=== PATIENT | female | born 1990 | race Caucasian/White ===

== ENCOUNTER 2018-06-16 16:51 | Observation (INO) ==
--- NOTE | 2018-06-16 17:06 | ERNOTE ---
Abdominal HPI - Narrative Date of Service: 06/16/18 - General Chief Complaint: Abdominal Pain Time Seen by Provider: 06/16/18 17:05 Source: patient Exam Limitations: no limitations - Immun/Allergies/Home Medications Immunizatons: IMMUNIZATION HX Immunizations Up to Date Yes History of Influenza Vaccine No Hx Pneumococcal Vaccination No Allergies/Adverse Reactions: Allergies valacyclovir HCl [From Valtrex] Allergy (Mild, Verified 06/16/18 17:03) Itching hydrocodone Allergy (Verified 06/16/18 17:03) Migrains zolpidem tartrate [From Ambien] Allergy (Verified 06/16/18 17:03) Hallucinations Home Medications: HOME MEDICATIONS Dexlansoprazole [Dexilant] 60 mg PO DAILY 01/17/16 [Last Taken 04/10/16] Buspirone HCl 30 mg PO BID 04/11/16 [Last Taken 04/10/16] Acyclovir [Zovirax] 400 mg PO PRN PRN 05/22/16 [Last Taken Unknown] Melatonin 1 mg SL DAILY 07/18/16 [Last Taken Unknown] Duloxetine HCl [Cymbalta] 90 mg PO DAILY 12/16/17 [Last Taken Unknown] hydrOXYzine HCL [Atarax] 25 mg PO DAILY PRN 12/16/17 [Last Taken Unknown] Cyclobenzaprine HCl 10 mg PO PRN PRN 01/26/18 [Last Taken Unknown] Promethazine HCl [Phenergan (Promethazine)] 25 mg PO Q6H PRN #30 tab 03/23/18 [ Last Taken Unknown] - Pain Score Pain Score #1 Pain Score: 9 Abdominal Pain Onset Location: epigastric Pain Radiation: back - History of Present Illness Narrative: The patient is a 27 year old female who presents for epigastric abdominal pain which has been present for 2 days. There are associated symptoms of nausea, vomiting and diarrhea. Patient denies having vomiting today but has felt unable to drink and has only had bites of food due to nausea. Patient has had 4 episodes of diarrhea today. The patient reports pain to epigastric and periumbilical, 9/10. There are no alleviating factors. There are no aggravating factors. Previous treatments have included: Phenergan without relief. The past medical history includes: Crohns and anxiety. The social history is positive for current smoking. The patient has had no ill contacts. Patient states her last Crohns flare was approximately 3 years ago. Timing: getting worse Modifying Factors - (Worsens): Present: sitting up. Absent: eating Associated Symptoms: Present: back pain, nausea, vomiting. Absent: diarrhea- gross blood Review of Systems - Review of Systems Constitutional: Present: fatigue. Absent: chills EYE: Present: no symptoms reported ENT: Present: no symptoms reported, nasal drainage. Absent: ear pain, sore throat Respiratory: Present: no symptoms reported. Absent: shortness of breath, cough Cardiology: Present: no symptoms reported. Absent: chest pain Gastrointestinal/Abdominal: Present: nausea, vomiting, diarrhea, abdominal pain Genitourinary: Present: no symptoms reported. Absent: dysuria, discharge Musculoskeletal: Present: no symptoms reported Skin: Present: no symptoms reported. Absent: rash Neurological: Present: no symptoms reported Endocrine: Present: no symptoms reported Hematologic/Lymphatic: Present: no symptoms reported Psych: Present: no symptoms reported All Other Systems: All systems neg except as marked Medical History (Last Reviewed 06/16/18 @ 19:58 by JESUS Bravo) Anxiety Crohns disease Surgical History: Surgical History (Last Reviewed 06/16/18 @ 19:58 by JESUS Bravo) Hx of thyroidectomy (Resolved) right ankle surgery (Acute) Status post cholecystectomy (Acute) History of lung surgery Family History: Family History (Last Reviewed 06/16/18 @ 19:58 by JESUS Bravo) Other Family history reviewed with no changes Social History: Preferred Language Cymro Smoking Status Current every day smoker Abuse History No History of abuse Psych History Hx of Anxiety,Hx of Depression Alcohol Use none Drug Use none Physical Exam - Physical Exam General Appearance: Present: wd/wn, alert, moderate distress Head Exam: Present: normal inspection Eye Exam: Normal inspection: bilateral Ears, Nose, Throat: Present: normal ENT inspection, dry mucous membranes Neck: Present: normal inspection, nontender Respiratory: Present: no respiratory distress, normal breath sounds, lungs clear Cardiovascular/Chest: Present: regular rate, rhythm, no murmur Gastrointestinal/Abdominal: Present: nondistended, soft, tenderness - epigastric and periumbilical, abnormal bowel sounds - hyperactive, guarding Back Exam: Present: no CVA tenderness Neurological Exam: Present: alert, oriented, normal mood/affect Skin Exam: Present: normal color, warm/dry ED Progress - Results and Orders Patient's Lab Results:: I have reviewed the patient's lab results. - Vital Signs Patient's Vital Signs:: I have reviewed the patient's vital signs. Vital Signs: Vital Signs 06/16/18 16:53 Temperature 36.8 C Pulse Rate 93 Respiratory Rate 12 Blood Pressure 128/74 O2 Sat by Pulse Oximetry 98 - X-Ray X-Ray #1 X-Ray: abdomen Interpretation: Reviewed by me X-ray Comments: Abdomen xray: Nonspecific air-fluid levels - Progress/Reassessment Chief Complaint: Abdominal Pain Plan - Plan Plan: Patient nausea persists along with recurrence of pain to abdomen. Discussed care with Dr. Joiner and will admit observation due to persistent pain, nausea, as well as nonspecific air-fluid levels on abdominal x-ray with history of Crohn 's. Departure Clinical Impression: Dehydration Crohns disease Qualifiers: Gastrointestinal tract location: unspecified location Digestive disease complication type: unspecified complication Qualified Code(s): K50.919 - Crohn' s disease, unspecified, with unspecified complications Abdominal pain Qualifiers: Abdominal location: epigastric Qualified Code(s): R10.13 - Epigastric pain - Departure Disposition: Still a patient Condition: Stable
[2018-06-16] MEDS ORDERED: ONDANSETRON HCL/PF 2 MG/ML VIAL IV ONE (17:13)
[2018-06-16] MEDS ORDERED: KETOROLAC TROMETHAMINE 30 MG/ML VIAL IV ONE (17:14)
[2018-06-16] MEDS ORDERED: NORMAL SALINE 1,000 ML IV ONE ×2 (17:14→20:14)
[2018-06-16 17:31] LABS: Hematocrit 43.7 % (37.0-47.0); Hemoglobin 14.6 gm/dL (12.5-16.0); Mean Cell Volume 87.4 fl (78-100); Mean Corpuscular Hemoglobin 29.2 pg (27-31); Mean Corpuscular Hgb Conc 33.4 g/dl (32-36); Neutrophil # 6.2 K/mm3 (1.3-6.0); Neutrophil % 71.8 % (42-75.0); Platelet Count 282 K/mm3 (150-450); Red Cell Distribution Width 13.2 % (11.5-14.0); White Blood Count 8.7 K/mm3 (4.0-10.5)
[2018-06-16] MEDS ORDERED: KETOROLAC TROMETHAMINE 30 MG/ML VIAL ONE (17:43)
[2018-06-16] MEDS ORDERED: ONDANSETRON HCL/PF 2 MG/ML VIAL ONE (17:43)
[2018-06-16 17:45] LABS: Albumin * 4.2 gm/dl (3.4-5.0); Anion Gap 11.8 mmol/L (6.8-13.8); BUN/Creatinine Ratio 17.2 (9.0-21.6); Bilirubin, Total 0.5 mg/dL (0.0-1.1); Ca. Corrected For Albumin 9.3 mg/dL (8.4-10.2); Calcium * 9.8 mg/dL (7.9-10.9); Carbon Dioxide 28.7 mmol/L (24-32.6); Potassium 3.5 mmol/L (3.4-4.6); Total Protein 7.6 gm/dL (6.2-8.2)
[2018-06-16 19:22] LABS: Urine Bilirubin Negative (NEGATIVE); Urine Blood Negative /ul (NEGATIVE); Urine Ketone 15 mg/dL (NEGATIVE); Urine Nitrite Negative (NEGATIVE); Urine Protein Negative (NEGATIVE); Urine Specific Gravity 1.025 SP.GR. (1.005-1.010); Urine Urobilinogen Normal (NORMAL)
[2018-06-16 19:41] LABS: Urine Appearance Clear (CLEAR); Urine Color Yellow
[2018-06-16 19:42] LABS: Urine Bacteria TRACE; Urine RBC TRACE /hpf (0-5); Urine WBC 0-5 /hpf (0-5)
[2018-06-16] MEDS ORDERED: MORPHINE SULFATE 2 MG/ML DISP.SYRIN IV PRN (20:14)
[2018-06-16] MEDS ORDERED: ONDANSETRON HCL/PF 2 MG/ML VIAL IV PRN (20:14)
[2018-06-16] MEDS ORDERED: hydrOXYzine HCL 25 MG TABLET PO PRN (21:38)
[2018-06-16] MEDS ORDERED: PROMETHAZINE HCL 25 MG TABLET PO PRN (21:38)
[2018-06-16] MEDS ORDERED: CYCLOBENZAPRINE HCL 10 MG TABLET PO PRN (21:38)
[2018-06-16] MEDS ORDERED: busPIRone HCL 5 MG TABLET PO SCH (22:30)
[2018-06-16] MEDS ORDERED: PRAZOSIN HCL 1 MG CAPSULE PO SCH (22:30)
[2018-06-16] MEDS ORDERED: PANTOPRAZOLE SODIUM 40 MG TABLET.EC ONE (22:44)
[2018-06-16] MEDS: PANTOPRAZOLE SODIUM 40 MG TABLET.EC PO SCH (22:51)
[2018-06-17] MEDS: PANTOPRAZOLE SODIUM 40 MG TABLET.EC PO SCH (07:14)
[2018-06-17] MEDS ORDERED: DULoxetine HCL 30 MG CAPSULE.SA PO SCH (09:00)
[2018-06-17] MEDS ORDERED: CYCLOBENZAPRINE HCL 10 MG TABLET PO PRN (09:02)
--- NOTE | 2018-06-17 11:43 | DS ---
(1) Gastroenteritis Problem: Acute (2) Dehydration, moderate Problem: Acute Description of Stay: 27 y/o female with PMHx of Chronn's disease, depression, and anxiety disorder was admitted to observation for epigastric pain, nausea, vomiting and diarrhea of several days duration. Jacquelyn denied fever or chills but says that her symptoms gradually got worse and was not responding to home meds. She reports having multiples episodes of nonbloody diarrhea, the last occuring yesterday morning. ER Abd Xray revealed a nonobstructed air patternand no apparent obstruction or perforation. Labs were unremarkable. After careful evaluation, jacquelyn was treated with antiemetics, IV hydration, analgesics, and anxiolitics for her anxiety disorder she now says she feels better has less nausea and less abdominal pain. Therefore, jacquelyn is being discharged with a PPI, antiemetics, and instruction to F/ u with her PCP. Procedures Performed: none Results and Findings: Lab Pending Results 06/16/18 17:30: WBC 8.7, RBC 5.00, Hgb 14.6, Hct 43.7, MCV 87.4, MCH 29.2, MCHC 33.4, RDW 13.2, Plt Count 282, MPV 10.0, Immature Gran % (Auto) 0.20, Immature Gran # (Auto) 0.02, Neutrophils % 71.8, Lymphocytes % 20.3, Monocytes % 5.5, Eosinophils % 1.7, Basophils % 0.5, Nucleated RBC % 0.0, Neutrophils # 6.2 H, Lymphocytes # 1.77, Monocytes # 0.5, Eosinophils # 0.2, Absolute Basophils 0.0 06/16/18 17:30: Sodium 137, Plasma Sodium 137, Potassium 3.5, Chloride 100, Carbon Dioxide 28.7, Anion Gap 11.8, BUN 10, Creatinine 0.58, Est GFR (Non-Af Amer) 133 H, BUN/Creatinine Ratio 17.2, Random Glucose 109, Calcium 9.8, Calcium Adj for Albumin 9.3, Total Bilirubin 0.5, AST 15, ALT 14 L, Alkaline Phosphatase 66, Total Protein 7.6, Albumin 4.2, Amylase 67, Lipase 95 06/16/18 17:30: ESR 8 06/16/18 17:30: C-Reactive Prot, Quant Less than 0.2 06/16/18 19:13: Urine HCG, Qual Negative 06/16/18 19:13: Urine Color Yellow, Urine Appearance Clear, Urine pH 7.0, Ur Specific [place] 1.025, Urine Protein Negative, Urine Glucose (UA) Negative, Urine Ketones 15, Urine Blood Negative, Urine Nitrate Negative, Urine Bilirubin Negative, Urine Urobilinogen Normal, Ur Leukocyte Esterase Negative, Urine RBC Trace, Urine WBC 0-5, Ur Epithelial Cells 0-5, Urine Bacteria Trace, Urine Culture Comments No culture indicated Discharge Location: Home Disposition: Home self-care Condition: Good Face to Face Encounter completed per [facility] Guidelines: Yes Level of Care: SNF Discharge Activity: Activity as tolerated Discharge Diet: Clear Liquids - for 24 hr. Referrals: Johnny Art MD [Primary Care Provider] - Problem Oriented Discharge Instructions to Patient/Family: Viral Gastroenteritis, Adult, [id number] Print Language (Tamazight or Cypriot Available): Tamazight Additional Patient Instructions (free text): Follow up with your PCP Dr Art on WednesdayJun.21 at 11:00am. Prescriptions (Any new or edited meds): Ondansetron HCl [Zofran] 4 mg PO PRN PRN #7 tab PRN Reason: Nausea And Vomiting Complete Home Medications List: Complete Home Medication List: Dexlansoprazole [Dexilant] 60 mg PO HS 01/17/16 Buspirone HCl 60 mg PO HS 04/11/16 Melatonin 1 mg SL HS 07/18/16 Duloxetine HCl [Cymbalta] 120 mg PO DAILY 12/16/17 hydrOXYzine HCL [Atarax] 25 mg PO DAILY PRN 12/16/17 Cyclobenzaprine HCl 10 mg PO PRN PRN 01/26/18 Promethazine HCl [Phenergan (Promethazine)] 25 mg PO Q6H PRN #30 tab 03/23/18 Prazosin HCl [Minipress] 2 mg PO HS 06/16/18 Ondansetron HCl [Zofran] 4 mg PO PRN PRN #7 tab 06/17/18 busPIRone HCL [Buspar] 60 mg PO HS tablet 06/17/18
[2018-06-17 12:55] VITALS: BP 111/61
--- NOTE | 2018-06-21 13:47 | HP ---
Chief Complaint - Chief Complaint Date of Service: 06/16/18 Time of Service: 08:00 Chief Complaint: Abdominal pain, nausea, and diarrhea History of Present Illness: 27 y/o female with PMHx of Chronn's disease, anxiety, and depression was admitted to observation due to cramping epigastric abdominal pain accompanied by bloating, nausea, and several episodes of vomiting of 2 days duration. Patient reports that she tried at home remedies and phenergan but her symptoms did not improve. She says she hasn't beeen able to eat due to the nausea and vomiting and feels like she's gettin weaker. Given her history of Chronn's disease, he was concerned enough to report to ER. Patient denies fever or chills or contact with sick persons. She also denied recent travel. Medical History (Last Reviewed 06/16/18 @ 22:35 by Mattie Domingo RN) Anxiety Crohns disease Surgical History: Surgical History (Last Reviewed 06/16/18 @ 22:35 by Mattie Domingo RN) Hx of thyroidectomy (Resolved) right ankle surgery (Acute) Status post cholecystectomy (Acute) History of lung surgery Family History: Family History (Last Updated 06/16/18 @ 22:34 by Mattie Domingo RN) Mother Diabetes 1.5, managed as type 1 Kidney failure Father Alive and well Social History: Patient Lives/Resources Home Utilized Occupation event specialist food demonstrator Preferred Language Bulgarian Do you have any muslim or No cultural preference? Smoking Status Current every day smoker Have you smoked in the past 12 Yes months Abuse History No History of abuse Psych History Hx of Anxiety,Hx of Depression Alcohol Use none Drug Use none Peds Patient Hx - Developmental: No Pertinent Hx Peds Patient Hx - Medical: No Pertinent Hx Peds Patient Hx - Cardiac/Respiratory: No Pertinent Hx Peds Patient Hx - Surgical: No Surgical History Patient History - Cancer: No Hx of Cancer Review Of Systems (GEN) - Review of Systems EENTM: Present: No Symptoms Reported Respiratory: Present: No Symptoms Reported Cardiac: Present: No Symptoms Reported Abdominal: Present: Nausea, Vomiting, Abdominal Pain, Diarrhea Genitourinary: Present: No Symptoms Reported Neurological: Present: No Symptoms Reported Skin: Present: No Symptoms Reported Endocrine: Present: No Symptoms Reported Misc: All systems neg except as marked Immunizations: IMMUNIZATION HX Immunizations Up to Date Yes History of Influenza Vaccine No Hx Pneumococcal Vaccination No Allergies/Adverse Reactions: Allergies Allergy/AdvReac Type Severity Reaction Status Date / Time valacyclovir HCl Allergy Mild Itching Verified 06/16/18 17:03 [From Valtrex] hydrocodone Allergy Migrains Verified 06/16/18 17:03 zolpidem tartrate Allergy Hallucinati Verified 06/16/18 17:03 [From Ambien] ons Home Medications: HOME MEDICATIONS Dexlansoprazole [Dexilant] 60 mg PO HS 01/17/16 [Last Taken 06/15/18 21:00] Buspirone HCl 60 mg PO HS 04/11/16 [Last Taken 04/10/16] Melatonin 1 mg SL HS 07/18/16 [Last Taken 06/15/18 21:00] Duloxetine HCl [Cymbalta] 120 mg PO DAILY 12/16/17 [Last Taken 06/15/18 21:00] hydrOXYzine HCL [Atarax] 25 mg PO DAILY PRN 12/16/17 [Last Taken Unknown] Cyclobenzaprine HCl 10 mg PO PRN PRN 01/26/18 [Last Taken Unknown] Promethazine HCl [Phenergan (Promethazine)] 25 mg PO Q6H PRN #30 tab 03/23/18 [Last Taken Unknown] Prazosin HCl [Minipress] 2 mg PO HS 06/16/18 [Last Taken 06/15/18 21:00] Ondansetron HCl [Zofran] 4 mg PO PRN PRN #7 tab 06/17/18 [Last Taken Unknown] busPIRone HCL [Buspar] 60 mg PO HS tablet 06/17/18 [Last Taken Unknown] Exam - Exam Vital Signs: Vital Signs - Last Taken Temp 36.8 C 06/17/18 13:31 Pulse 88 06/17/18 13:31 Resp 16 06/17/18 13:31 BP 111/61 06/17/18 13:31 Pulse Ox 95 06/17/18 13:31 Constitutional: Present: Alert, Oriented x3, Cooperative, Mild distress, Young ENT Exam: Present: normal ENT inspection Eye Exam: bilateral eye: normal inspection, PERRL, EOMI Neck: Present: non-tender, full range of motion, supple, normal inspection, trachea midline Back Exam: Present: normal inspection, no CVA tenderness, no vertebral tenderness Breasts: Present: Exam deferred Respiratory: Present: chest non-tender, lungs clear, normal breath sounds, no respiratory distress, no accessory muscle use Cardiovascular/Chest: Present: normal peripheral pulses, regular rate, rhythm, no chest tenderness, no edema, no gallop, no JVD, no murmur Peripheral Pulses: carotid (R): 4+, carotid (L): 4+, femoral (R): 4+, femoral (L): 4+, dorsalis-pedis (R): 4+, dorsalis-pedis (L): 4+, radial (R): 4+, radial (L): 4+ Abdomen: Present: tender - generalized tenderness, worse in epigatrium ., high pitched bowel sounds /Rectal: Present: Exam deferred Extremity: Present: normal range of motion, non-tender, normal inspection, no pedal edema, no calf tenderness, normal capillary refill, pelvis stable Skin Exam: Present: normal color, no cyanosis, cool/dry Lymphatic: Present: no adenopathy 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, normal cerebellar test, no motor/sensory deficits, alert, normal mood/affect, oriented x 3 Appearance: Present: appropriate appearance Eye contact: Present: cooperative, good eye contact, normal speech Thoughts: Present: normal thought pattern, no apparent hallucination Diagnostic Studies: Laboratory Results WBC 8.7 K/mm3 (4.0-10.5) 06/16/18 17:30 RBC 5.00 M/mm3 (4.2-5.4) 06/16/18 17:30 Hgb 14.6 gm/dL (12.5-16.0) 06/16/18 17:30 Hct 43.7 % (37.0-47.0) 06/16/18 17:30 MCV 87.4 fl (78-100) 06/16/18 17:30 MCH 29.2 pg (27-31) 06/16/18 17:30 MCHC 33.4 g/dl (32-36) 06/16/18 17:30 RDW 13.2 % (11.5-14.0) 06/16/18 17:30 Plt Count 282 K/mm3 (150-450) 06/16/18 17:30 MPV 10.0 fl (8-12.5) 06/16/18 17:30 Immature Gran % (Auto) 0.20 % (0.001-0.429) 06/16/18 17:30 Immature Gran # (Auto) 0.02 K/mm3 (0.000-0.0310) 06/16/18 17:30 Neutrophils % 71.8 % (42-75.0) 06/16/18 17:30 Lymphocytes % 20.3 % (20-51) 06/16/18 17:30 Monocytes % 5.5 % (0.0-9) 06/16/18 17:30 Eosinophils % 1.7 % (0.0-3.0) 06/16/18 17: Basophils % 0.5 % (0.0-1.0) 06/16/18 17: Nucleated RBC % 0.0 k/mm3 (0-1) 06/16/18 17:30 Neutrophils # 6.2 K/mm3 (1.3-6.0) H 06/16/18 17:30 Lymphocytes # 1.77 k/mm3 (1.5-3.5) 06/16/18 17:30 Monocytes # 0.5 k/mm3 (0.0-1.0) 06/16/18 17:30 Eosinophils # 0.2 k/mm3 (0.0-0.7) 06/16/18 17:30 Absolute Basophils 0.0 k/mm3 (0.0-0.1) 06/16/18 17:30 ESR 8 mm/hr (0-15) 06/16/18 17:30 Sodium 137 mmol/L (132-142) 06/16/18 17:30 Plasma Sodium 137 mmol/L (130-142) 06/16/18 17:30 Potassium 3.5 mmol/L (3.4-4.6) 06/16/18 17:30 Chloride 100 mmol/L (97-106) 06/16/18 17:30 Carbon Dioxide 28.7 mmol/L (24-32.6) 06/16/18 17:30 Anion Gap 11.8 mmol/L (6.8-13.8) 06/16/18 17:30 BUN 10 mg/dL (3-23) 06/16/18 17:30 Creatinine 0.58 mg/dL (0.4-1.4) 06/16/18 17:30 Est GFR (Non-Af Amer) 133 mL/min (60-130) H 06/16/18 17:30 BUN/Creatinine Ratio 17.2 (9.0-21.6) 06/16/18 17:30 Random Glucose 109 mg/dL (70-110) 06/16/18 17:30 Calcium 9.8 mg/dL (7.9-10.9) 06/16/18 17:30 Calcium Adj for Albumin 9.3 mg/dL (8.4-10.2) 06/16/18 17:30 Total Bilirubin 0.5 mg/dL (0.0-1.1) 06/16/18 17:30 AST 15 U/L (0-48) 06/16/18 17:30 ALT 14 U/L (19-67) L 06/16/18 17:30 Alkaline Phosphatase 66 U/L (50-170) 06/16/18 17:30 C-Reactive Prot, Quant Less than 0.2 mg/dL (0.0-0.9) 06/16/18 17:30 Total Protein 7.6 gm/dL (6.2-8.2) 06/16/18 17:30 Albumin 4.2 gm/dl (3.4-5.0) 06/16/18 17:30 Amylase 67 U/L (25-115) 06/16/18 17:30 Lipase 95 U/L (73-393) 06/16/18 17:30 Urine Color Yellow 06/16/18 19:13 Urine Appearance Clear (CLEAR) 06/16/18 19:13 Urine pH 7.0 pH (5.0-7.0) 06/16/18 19:13 Ur Specific [place] 1.025 SP.GR. (1.005-1.010) 06/16/18 19:13 Urine Protein Negative mg/dL (NEGATIVE) 06/16/18 19:13 Urine Glucose (UA) Negative mg/dL (NEGATIVE) 06/16/18 19:13 Urine Ketones 15 mg/dL (NEGATIVE) 06/16/18 19:13 Urine Blood Negative /ul (NEGATIVE) 06/16/18 19:13 Urine Nitrate Negative (NEGATIVE) 06/16/18 19:13 Urine Bilirubin Negative mg/dl (NEGATIVE) 06/16/18 19:13 Urine Urobilinogen Normal EU/dl (NORMAL) 06/16/18 19:13 Ur Leukocyte Esterase Negative /ul (NEGATIVE) 06/16/18 19:13 Urine RBC Trace /hpf (0-5) 06/16/18 19:13 Urine WBC 0-5 /hpf (0-5) 06/16/18 19:13 Ur Epithelial Cells 0-5 /hpf (0-5) 06/16/18 19:13 Urine Bacteria Trace (NONE) 06/16/18 19:13 Urine Culture Comments No culture indicated 06/16/18 19:13 Urine HCG, Qual Negative (NEGATIVE) 06/16/18 19:13 Assessment/Plan - Narrative Narrative: Px admitted to Inpatient observation for treatment with IV hydration, antiemetics, and pain management. Px placed on NPO status. Regular at home meds will continue. - Assessment/Plan (1) Gastroenteritis Problem: Acute (2) Dehydration, moderate Problem: Acute
== END 2018-06-17 14:39 | disposition home or self-care (01) ==
LOC: MS 16:51 → ER 16:51 → MS 20:41
PROVIDERS: ADMIT Family Medicine; ATTEND Family Medicine
DX: E86.0 Dehydration; F41.9 Anxiety disorder, unspecified; F17.210 Nicotine dependence, cigarettes, uncomplicated; K50.90 Crohn's disease, unspecified, without complications; K52.9 Noninfective gastroenteritis and colitis, unspecified
CPT/HCPCS: 36415; 74019; 74020; 80053; 81001; 82150; 83690; 84703; 85025; 85652; 86140; 96361; 96374; 96375; 99284; G0378; J2405